=== PATIENT | male | born 2000 | race Caucasian/White ===

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

== ENCOUNTER 2021-02-13 14:47 | Emergency (ER) | payer BC ==
[~2021-02-13] VITALS: Ht 175.2 cm; Wt 88.5 kg
[2021-02-13 15:06] VITALS: BP 139/75
[2021-02-13] MEDS ORDERED: PROVENTIL HFA6.7 GM INH (21:06)
== END 2021-02-13 21:06 | disposition home or self-care (01) ==
LOC: ED 14:47
DX: J40 Bronchitis, not specified as acute or chronic (principal); Z20.822 Contact with and (suspected) exposure to COVID-19

== ENCOUNTER 2021-11-20 09:49 | Emergency (ER) | payer BC ==
[~2021-11-20 09:49] MED LIST changes: +PROVENTIL HFA6.7 GM INH
[2021-11-20 10:27] LABS: BILIRUBIN Negative (Negative); BLOOD Negative (Negative); CLARITY Clear (Clear); COLOR Yellow (Yellow); GLUCOSE Negative (Negative); KETONE Trace (Negative); LEUKO ESTERASE Trace (Negative); NITRITE Negative (Negative); PH 6.5 (4.5-8.0)
[2021-11-20 10:46] LABS: BACTERIA 1+; MUCOUS 2+
[2021-11-20 14:00] VITALS: BP 95/60
[2021-11-20] MEDS ORDERED: CEPHALEXIN500 M1 PO (14:52)
== END 2021-11-20 14:58 | disposition home or self-care (01) ==
LOC: ED 09:49
PROVIDERS: Emergency Medicine
DX: R30.0 Dysuria (principal); M54.50 Low back pain, unspecified; F17.200 Nicotine dependence, unspecified, uncomplicated; Z79.899 Other long term (current) drug therapy

== ENCOUNTER 2023-05-01 20:31 | Emergency (ER) | payer OTHER ==
[~2023-05-01] VITALS: Ht 175.2 cm; Wt 95.3 kg
[2023-05-01 20:42] VITALS: BP 125/76
[2023-05-01] MEDS ORDERED: NAPROXEN500 MG PO (22:12)
== END 2023-05-01 22:15 | disposition home or self-care (01) ==
LOC: ED 20:31
DX: J06.9 Acute upper respiratory infection, unspecified (principal); Z98.890 Other specified postprocedural states; F17.210 Nicotine dependence, cigarettes, uncomplicated; Z20.822 Contact with and (suspected) exposure to COVID-19

== ENCOUNTER 2024-02-15 13:17 | Emergency (ER) | payer OTHER ==
[~2024-02-15] VITALS: Ht 175.2 cm; Wt 90.7 kg
[~2024-02-15 13:17] MED LIST changes: +NAPROXEN500 MG PO
[2024-02-15 13:24] VITALS: BP 125/86
[2024-02-15] MEDS ORDERED: OMEPRAZOLE40 MG PO (13:27)
[2024-02-15 13:47] LABS: BILIRUBIN Negative (Negative); BLOOD Negative (Negative); CLARITY Clear (Clear); COLOR Yellow (Yellow); GLUCOSE Negative (Negative); KETONE Negative (Negative); LEUKO ESTERASE Negative (Negative); NITRITE Negative (Negative); SPECIFIC GRAVITY 1.015 (1.001-1.030); UROBILINOGEN 0.2 E.U./dl (0.0-1.0)
[2024-02-15 13:52] LABS: BASO # 0.1 10*3/uL (0.0-0.1); BASO % 0.6 % (0.0-1.0); EOS # 0.5 10*3/uL (0.0-0.4); EOS % 5.2 % (1.0-4.0); HEMATOCRIT 47.8 % (42.0-52.0); LYMPH % 28.4 % (27.0-41.0); MEAN CELL VOLUME 85.8 fl (80.0-94.0); MEAN CORPUSCULAR HGB 29.4 pg (27.0-31.0); MEAN CORPUSCULAR HGB CONC 34.3 g/dl (33.0-37.0); MEAN PLATELET VOLUME 10.3 fl (9.6-12.3); MONO # 1.1 10*3/uL (0.1-1.0); MONO % 10.4 % (3.0-9.0); NEUT # 5.7 10*3/uL (2.3-7.9); NEUT % 54.7 % (47.0-73.0); PLATELET COUNT AUTOMATED 344 10*3/uL (130-400); RED BLOOD COUNT 5.57 10*6/uL (4.50-5.90); RED CELL DISTRI WIDTH 11.9 % (0-14.5); WHITE BLOOD COUNT 10.4 10*3/uL (4.8-10.8)
[2024-02-15 13:53] LABS: EPITHELIAL CELLS 0-2; RBC 0-2 rbc/hpf (0-2); WBC 0-2 wbc/hpf (0-5)
[2024-02-15 14:20] LABS: ALKALINE PHOSPHATASE 97 U/L (46-116); BUN 9 mg/dl (9-23); CHLORIDE 107 mmol/L (98-107); LIPASE 38 U/L (12-53); POTASSIUM 3.6 mmol/L (3.4-5.1); SGPT/ALT 51 U/L (5-49); TOTAL PROTEIN 7.5 gm/dL (6.0-8.0)
== END 2024-02-15 14:54 | disposition home or self-care (01) ==
LOC: ED 13:17
PROVIDERS: Nurse Practitioner Family
DX: R16.0 Hepatomegaly, not elsewhere classified (principal); R74.01 Elevation of levels of liver transaminase levels; Z98.890 Other specified postprocedural states